=== PATIENT | male | born 1965 | race Caucasian/White ===

== ENCOUNTER 2024-03-09 07:42 | Inpatient (IN) ==
--- OUTSIDE RECORDS SUMMARY | 2024-03-09 07:50 | External Medical Summary | Continuity of Care Document ---
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 Role Phone Logan Haji Primary Care Physician [phone] Encounter [facility] FINNBR [id number] Date(s): 12/13/23 - 12/13/23 [facility] [address] [address] [phone] Encounter Diagnosis Body mass index [BMI] 21.0-21.9, adult(Discharge Diagnosis) - 12/13/23 Rotator cuff injury(Discharge Diagnosis) - 12/13/23 Discharge Disposition: Home or Self Care Attending Physician: DO Gallegos Gretchen Elizabeth Allergies, Adverse Reactions, Alerts No Known Allergies Immunizations Given and Recorded Vaccine Date Status Refusal Reason SARS-CoV-2 mRNA (Pfizer 5y-11y) bivalent 06/17/23 Recorded SARS-CoV-2 mRNA (Pfizer 12+) bivalent 1 05/29/22 R ecorded influenza virus vaccine, inactivated 05/28/22 Pravin rded influenza virus vaccine, inactivated 2 05/23/21 Re corded influenza virus vaccine, inactivated 3 05/12/20 Re corded influenza virus vaccine, inactivated 4 05/25/19 Re corded influenza virus vaccine, inactivated 05/23/18 Pravin rded influenza virus vaccine, inactivated 05/01/17 Pravin rded influenza virus vaccine, inactivated 05/02/16 Pravin rded influenza virus vaccine, inactivated 05/11/15 Pravin rded SARS-CoV-2 mRNA ([id number]) 5 01/02/22 Recorded SARS-CoV-2 (COVID-19) mRNA BNT-162b2 vax 6 05/25/21 Recorded SARS-CoV-2 (COVID-19) mRNA BNT-162b2 vax 7 08/19/20 Recorded SARS-CoV-2 (COVID-19) mRNA BNT-162b2 vax 8 07/29/20 Recorded zoster vaccine, inactivated 9 08/28/19 Recorded zoster vaccine, inactivated 06/30/19 Recorded zoster vaccine, inactivated 10 06/27/19 Recorded tetanus/diphtheria/pertuss, acel (Tdap) 03/15/15 R ecorded measles/mumps/rubella virus vaccine 11 08/12/66 Re corded 1Result Comment: 2022-06-20: Historical information-source unspecified 2Result Comment: at work at [employer] 3Result Comment: at [employer] 4Result Comment: at [employer] 5Result Comment: 2022-06-20: Historical information-source unspecified 6Result Comment: 2021-06-12: Historical information-source unspecified 7Result Comment: 2021-06-12: Historical information-source unspecified 8Result Comment: 2021-06-12: Historical information-source unspecified 9Result Comment: 2020-06-08: Historical information-source unspecified 10Result Comment: 2019-08-31: Historical information-source unspecified 11Result Comment: he will check with [employer] employee health Medications Flonase 50 mcg/inh nasal spray Start: 05/28/16 8:59:33, 1 spray, intranasal, bid, Disp# 1 each, Refills: 11, [facility] Start Date: 05/28/16 Status: Ordered valACYclovir 500 mg oral tablet Start: 06/10/23 15:06:00 EDT, 2 tab, PO, q12h, Disp# 8 tab, Refills: 1, Pharmacy: [id number] Start Date: 06/10/23 Status: Ordered Vitamin D3 2000 intl units oral capsule Start: 06/04/18 8:37:00 EDT, 1 cap, PO, Daily, Disp# 100 cap, Refills: 10, given to patient Start Date: 06/04/18 Status: Ordered Mental Status 12/13/23 Barriers to Learning one year None evide nt Mandatory Health Literacy Documentation Yes Health Literacy Communication Barriers N ever Primary Language Nepali Problem List Condition Confirmation Course Effective Dates Status H ealth Status Informant Inguinal hernia bilateral, non-recurrent 1 Confirmed 05/04/15 Active Kidney stone on left side 2 Confirmed 05/22/14 Active Mitral regurgitation 3 Confirmed 02/04/14 Active Recurrent HSV (herpes simplex virus) 4 Confirmed Active 1right > left 26 mm left upper pole 3mild, normal valve on Echo at [facility] 4on buttock Diagnosis Diagnosis Type Effective Dates Health Status Cl inical Service Informant Body mass index [BMI] 21.0-21.9, adult Discharge Diagnosis 12/13/23 Non-Specified Rotator cuff injury Discharge Diagnosis 12/13/23 Non-Specified Procedures Procedure Date Related Diagnosis Body Site Status Colonoscopy 1 12/20/15 Completed Repair of umbilical hernia 2007 Completed 1Normal. Vital Signs Most recent to oldest [Reference Range]: 1 Height 172 cm (12/13/23 8:30 AM) Patient Weight 62.4 kg (12/13/23 8:30 AM) Body Mass Index 21.09 kg/m2 (12/13/23 8:30 AM) Heart Rate 70 bpm (12/13/23 8:30 AM) Respiratory Rate 16 br/min (12/13/23 8:30 AM) Blood Pressure 120/84mmHg (12/13/23 8:30 AM) Cuff Pulse Pressure 36 mmHg (12/13/23 8:30 AM) Social History Social History Type Response Smoking Status Never smoked cigaret evin Sex Male Patient Care team information Care Team Personnel Name: MD Haji Christopher Position: Physician - Family Med Member Role: Primary Care Provider Address: Address: [facility] [address] [place] [address] [place] Care Team Related Persons Name: DAREK VILLA Address: home No Address Provided
[2024-03-09] MEDS: HYDROmorphone INJ 0.5 MG/0.5 ML SYR IV STA (08:00)
[2024-03-09] MEDS: SODIUM CHLORIDE 0.9% 500 ML IV STA (08:00)
[2024-03-09] MEDS: ONDANSETRON INJ 2 MG/ML 2 ML VIAL IV STA (08:04)
--- NOTE | 2024-03-09 08:06 | Emergency Department Note ---
Impression & Plan Acute left flank pain ED Provider Note NAME: JENNIFER RAMIREZ AGE: 58 SEX: Male INFORMANT: Patient ED PROVIDER(S): Damian Bose MD CHIEF COMPLAINT: Flank pain PLAN: Disposition: Admitted Outpatient prescription management: none Referral: None MEDICAL DECISION MAKING: Patient present because of flank pain. Blood work was unremarkable. X-ray of edging was concerning for possible kidney stone. Patient received multiple doses of IV Dilaudid, Toradol, and Zofran. He was still having moderate pain. His hemoglobin was noted to be 2 points lower than prior. He underwent CT imaging. No signs of infection on urinalysis. Patient has a very large obstructing ureteral stone. Consultation was made with the [facility] urology service. Patient will be admitted for pain control under the hospitalist service. The patient was seen and examined with Dr. Ayon, resident physician. We discussed the case and treatments ordered, reviewed the results, and determine the disposition. I have been directly involved with the management and disposition as well as independently evaluated the patient as documented in this note. Care/management discussed with: client program manager Level of care consideration(s): After review of the information above and other included data, I feel the patient requires escalation of care to admission Triage Nursing notes: reviewed and agree them. Vital Signs: reviewed and remarkable for no significant abnormalities Additional History obtained from: none Chronic Medical/Social Conditions affecting care: none Prior/ Outside/ External records reviewed: none Differential Diagnosis: Renal colic, UTI, appendicitis, diverticulitis, mesenteric ischemia, aortic pathology, infections, inflammatory bowel disease, PUD, biliary pathology, as well as other pathologies. Diagnostics, independently interpreted by me: ECG: none Cardiac Monitoring: Cardiac monitoring ordered by me: The patient was placed on continuous cardiac monitoring and observed. It revealed a normal sinus rhythm at 60 beats per minute without ectopy or evidence of dysrhythmia. Medical decision rules: none Imaging studies: KUB reveals calcification in the left flank concerning for nephrolithiasis. I refer you to the EMR for further details. HPI: 58 year old Male arrives for evaluation of left flank pain. This started 4 days ago and is persisting. Hx of left ureterolithiasis. The patient also notes the following associated symptoms, hematuria, nausea and vomiting. The patient has no medication for relieving factors. Current pain is rated as 8/10. Pt denies LOC, headache, fevers, chills, diaphoresis, visual changes, neck pain, chest pain, breathing difficulties, nausea, vomiting, abdominal pain, back pain, melena, hematochezia, urinary symptoms, numbness, weakness, lymphadenopathy, rash, or other complaints. PAST MEDICAL HISTORY: See Below, kidney stone PAST SURGICAL HISTORY: See Below, SOCIAL HISTORY: See Below, non-smoker HOME MEDICATIONS: See Below ALLERGIES: See Below VITALS: See Below PHYSICAL EXAMINATION: GENERAL: Awake, alert, uncomfortable-appearing, in no distress HENT: Normocephalic, atraumatic. Oropharynx unremarkable. EYES: Normal conjunctiva. Sclera non-icteric. NECK: Inspection normal. Non-tender. Supple. No nuchal rigidity. FROM. No masses. RESPIRATORY: Clear to auscultation. No wheezes. No rales. Normal respiratory effort. CARDIAC: Normal rate. Normal rhythm. No murmurs. No rubs. Extremities warm and well perfused. Pulses equal. No JVD. GI: Soft, non-distended. Left flank tenderness to palpation. No rebound or guarding. No masses. RECTAL: Deferred. MUSCULOSKELETAL: Atraumatic. Chest examination reveals no tenderness. The back is symmetrical on inspection without obvious abnormality. There is left CVA tenderness to palpation. No joint edema. LOWER EXTREMITIES: Calves are equal size bilaterally and non-tender. No edema. No discoloration. NEURO: Normal sensorium. No sensory or motor deficits noted. SKIN: No rash or jaundice noted. PROCEDURES: none CRITICAL CARE: none OBSERVATION NOTE: none Past Med/Surg History Problem List (Updated 03/09/24 @ 12:18 by Rosales Julian MD) Ureterolithiasis Acute left flank pain (Acute) Left nephrolithiasis Encounter for pre-operative examination Hematuria resolved Right inguinal hernia Small bowel obstruction (Acute) Epigastric pain (Acute 02/03/14) Medical History Nephrolithiasis History of atrial fibrillation Episode 2013- [facility] admssion, spontaneous conversion with unremarkable Echo and CHADS score zero No AC indication/further recommendations per [facility] inpatient cardiology consult 2013 Sinus rhythm on preop EKG 06/21/23 Mitral regurgitation no cardio. Recurrent HSV (herpes simplex virus) Surgical History S/P ureteral stent placement History of cystoscopy H/O right inguinal hernia repair (07/23/23) Open Right Inguinal Hernia Repair with Mesh(Right) - Broderick Smith DO H/O umbilical hernia repair 2005 Hx of colonoscopy Social History Smoking Status: Never smoker Second Hand Exposure: No; Do You Dip or Chew Tobacco: No; Hx Alcohol Use: Yes Alcohol type: beer and wine Alcohol Intake Frequency: 4 or More x per/Week Alcohol Intake Frequency Comment: 3-5/week Hx Substance Use: No Preferred Language: [place] Communication Ability: Effective Basket Hand Weaver Required: No Beliefs That Will Affect Care: None marital status: Current Living Situation: Spouse 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 How many Children do You have: 0 Feels Safe at Home: Yes Diet: regular during the past year weight has: remained stable Assistive Devices: Glasses Allergies Allergies Allergy/AdvReac Type Severity Reaction Status Date / Time No Known Allergies Allergy Unknown Verified 03/09/24 11:14 Home Meds Home Medications Medication Instructions Recorded Confirmed cholecalciferol (vitamin D3) 50 50 mcg PO DAILY 06/22/22 03/09/24 mcg (2,000 unit) capsule Results & Data (ED) Vital Signs Vital Signs - 24 hr 03/09/24 07:43 03/09/24 08:21 03/09/24 10:41 Temperature 36.4 C L Temperature Source Temporal Artery Scan Pulse Rate 67 61 Pulse Rate [Apical] 56 L Pulse Rate from SpO2 Sensor Respiratory Rate 24 18 Respiratory Effort / Characteristics Non-Labored Non-Labored Spontaneous Respiratory Depth Normal Normal Respiratory Pattern Regular Blood Pressure 165/78 H Blood Pressure [Right Arm] 125/70 Blood Pressure Mean 107 Blood Pressure Mean [Right Arm] 88 Pulse Oximetry 98 97 Oxygen Delivery Method Room Air Room Air Sepsis New/Unexplained Change in Mental Status No Sepsis Action Taken by Nursing No Action Required 03/09/24 11:09 03/09/24 11:30 03/09/24 12:06 Temperature Temperature Source Pulse Rate 58 L 50 L 55 L Pulse Rate [Apical] Pulse Rate from SpO2 Sensor 59 L 50 L Respiratory Rate 17 18 17 Respiratory Effort / Characteristics Respiratory Depth Respiratory Pattern Blood Pressure 123/69 129/64 133/72 Blood Pressure [Right Arm] Blood Pressure Mean 87 85 92 Blood Pressure Mean [Right Arm] Pulse Oximetry 99 97 99 Oxygen Delivery Method Sepsis New/Unexplained Change in Mental Status Sepsis Action Taken by Nursing 03/09/24 12:15 03/09/24 13:03 Temperature Temperature Source Pulse Rate 58 L 58 L Pulse Rate [Apical] Pulse Rate from SpO2 Sensor 61 Respiratory Rate 21 Respiratory Effort / Characteristics Respiratory Depth Respiratory Pattern Blood Pressure 122/73 Blood Pressure [Right Arm] Blood Pressure Mean 89 Blood Pressure Mean [Right Arm] Pulse Oximetry 99 Oxygen Delivery Method Sepsis New/Unexplained Change in Mental Status Sepsis Action Taken by Nursing Laboratory Data 03/09/24 07:54 03/09/24 07:54 Lab Results 03/09/24 03/09/24 Range/Units 07:54 11:20 WBC 4.08 L (4.8-10.8) K/ul RBC 4.96 (4.70-6.10) M/uL Hgb 12.1 L (14.0-18.0) g/dl Hct 38.3 L (42.0-52.0) % MCV 77.2 L (80.0-100.0) fL MCH 24.4 L (25.0-34.0) pg MCHC 31.6 L (32.0-36.0) g/dL RDW Std Deviation 38.7 (36.4-46.3) fL RDW Coeff of Aleisha 14.1 (11.5-14.5) % Plt Count 211 (130-400) K/uL MPV 9.9 (9.4-12.4) fL Sodium 141 (136-145) mmol/L Potassium 3.7 (3.5-5.1) mmol/L Chloride 109 H (98-107) mmol/L Carbon Dioxide 27 (21-32) mmol/L Anion Gap 5 (3-11) BUN 18 (6-23) mg/dl Creatinine 0.93 (0.6-1.4) mg/dl Est Cr Clr Drug Dosing 67.5 ml/min Est GFR ( Amer) 104.5 ml/min Est GFR (Non-Af Amer) 90.2 ml/min BUN/Creatinine Ratio 19.4 (10-20) Glucose 219 H (70-99(Fasting)) mg/dl Calcium 8.6 (8.6-10.3) mg/dl Total Bilirubin 0.5 (0.2-1.0) mg/dl AST 19 (13-39) U/L ALT 17 (7-52) U/L Alkaline Phosphatase 66 (34-104) U/L Total Protein 6.2 (6.0-8.3) gm/dl Albumin 4.1 (3.4-5.0) gm/dl Globulin 2.1 L (2.5-4.0) gm/dl Albumin/Globulin Ratio 2.0 (0.9-2) Urine Color Kimball Urine Appearance Turbid A (Clear) Urine pH 6.0 (4.5-7.5) Ur Specific Jefferson 1.021 (1.000-1.030) Urine Protein 2+ H (Negative) Urine Glucose (UA) Negative (Negative) Urine Ketones Negative (Negative) Urine Blood 3+ H (Negative) Urine Nitrite Negative (Negative) Urine Bilirubin Negative (Negative) Urine Urobilinogen Negative (Negative) Ur Leukocyte Esterase 1+ H (Negative) Urine WBC (Auto) 0-5 (0-5) /hpf Urine RBC (Auto) >20 H (0-2) /hpf U Hyaline Cast (Auto) 0-2 (0-2) /lpf U Epithel Cells (Auto) 0-2 (0-2) /hpf Urine Bacteria (Auto) None Seen (None Seen) Urine Mucus Present A (None Prsent) Administered Medications Discontinued Medications Hydromorphone HCl (Hydromorphone Inj 0.5 Mg/0.5 Ml Syr) 0.5 mg IV NOW STA Stop: 03/09/24 07:54 Last Admin: 03/09/24 08:00 Dose: 0.5 mg Documented By: CLARI Sodium Chloride (Nss) 500 mls @ 999 mls/hr IV .Q31M STA Stop: 03/09/24 08:27 Last Infusion: 03/09/24 08:37 Dose: Infused Documented By: Admin: 03/09/24 08:00 Dose: 999 mls/hr Documented By: CLARI Lactated Ringer's (Lr) 1,000 mls @ 999 mls/hr IV .Q1H1M ONE Stop: 03/09/24 12:53 Last Admin: 03/09/24 12:12 Dose: 999 mls/hr Documented By: HILL Ketorolac Tromethamine (Ketorolac Tromethamine 15 Mg/Ml Vial) 10 mg IV NOW ONE Stop: 03/09/24 08:32 Last Admin: 03/09/24 08:36 Dose: 10 mg Documented By: CLARI Ketorolac Tromethamine (Ketorolac Tromethamine 15 Mg/Ml Vial) 15 mg IV NOW ONE Stop: 03/09/24 09:31 Last Admin: 03/09/24 09:36 Dose: Not Given Documented By: CLARI Morphine Sulfate (Morphine Sulfate 4 Mg/Ml 1 Ml Carp\Vial) 4 mg IV NOW STA Stop: 03/09/24 09:34 Last Admin: 03/09/24 09:38 Dose: 4 mg Documented By: CLARI Ondansetron HCl (Ondansetron Inj 2 Mg/Ml 2 Ml Vial) 4 mg IV NOW STA Stop: 03/09/24 08:02 Last Admin: 03/09/24 08:04 Dose: 4 mg Documented By: CLARI Tamsulosin HCl (Tamsulosin Hcl 0.4 Mg Cap) 0.4 mg PO NOW STA Stop: 03/09/24 11:57 Last Admin: 03/09/24 12:12 Dose: 0.4 mg Documented By: HILL Imaging Data Radiologist's Impression: KUB X-Ray 03/09/24 07:53 KUB HISTORY: Left flank pain COMPARISON: Renal ultrasound 12/05/2023. Abdomen and pelvis CT 08/01/2023. FINDINGS: The bowel gas pattern is unremarkable. There are no dilated loops of small bowel to suggest an obstruction. There is 9 mm stone at the expected location of the left ureteropelvic junction. There are few punctate left renal calculi. No right renal calculi. A 2.3 cm sclerotic focus within the left side of the sacrum is consistent with a bone island. No pneumoperitoneum or pneumatosis. IMPRESSION: 1. A 9 mm stone at the expected location of the left ureteropelvic junction. 2. Left-sided nephrolithiasis. ACT 112: Negative or not required by law. Electronically signed by: Anuel Stewart M.D. 03/09/2024 9:28 AM Abdomen/Pelvis CT 03/09/24 08:[address] WITHOUT CONTRAST CT DOSE: 441.01 mGy.cm HISTORY: Acute left flank pain with hematuria kidney stone TECHNIQUE: Multiaxial CT images of the abdomen and pelvis were performed without contrast. A dose lowering technique was utilized adhering to the principles of ALARA. COMPARISON STUDY: Renal ultrasound 12/05/2023, CT 08/01/2023 FINDINGS: No acute lower thoracic abnormality. No free air. The unenhanced spleen, pancreas, gallbladder, adrenal glands and liver appear unremarkable. Unremarkable right kidney. 4 mm nonobstructing calculus of the superior pole left kidney. Moderate left-sided hydroureteronephrosis secondary to an obstructing 9 x 7 x 11 mm calculus of the proximal left ureter just distal to the UPJ. Reactive perinephric and perirenal inflammatory stranding. Prostatomegaly. Decompressed urinary bladder with wall thickening. Mild atherosclerosis of the aorta. No lymphadenopathy identified. Small hiatal hernia with distal esophageal wall thickening. No bowel obstruction or bowel wall thickening identified. The appendix is not well visualized. Unchanged left sacral sclerotic focus. No acute fracture. IMPRESSION: 1. Moderate left-sided hydroureteronephrosis secondary to an obstructing 11 mm calculus of the proximal left ureter just distal to the UPJ. 2. Left nephrolithiasis. ACT 112: Negative or not required by law. The above report was generated using voice recognition software. It may contain grammatical, syntax or spelling errors. Electronically signed by: Carlo Plaza M.D. 03/09/2024 9:21 AM Discharge Plan Visit Data Chief Complaint: Flank Pain Stated Complaint: FLANK PAIN, BLOOD IN URINE ED Provider: Damian Bose ED Midlevel Provider: Richard Ayon Discharge Problem: Acute left flank pain Forms Stand Alone Forms: My [facility] [employer] Prescriptions Prescriptions: No Action cholecalciferol (vitamin D3) 50 mcg (2,000 unit) capsule 50 mcg PO DAILY Referrals Referrals: Logan Haji MD [Primary Care Provider] -
[2024-03-09 08:09] LABS: Hematocrit (blood only) 38.3 % (42.0-52.0); Hemoglobin 12.1 g/dl (14.0-18.0); Mean Corpuscular Hemoglobin 24.4 pg (25.0-34.0); Mean Corpuscular Hgb Conc 31.6 g/dL (32.0-36.0); Mean Corpuscular Volume 77.2 fL (80.0-100.0); Mean Platelet Volume 9.9 fL (9.4-12.4); Platelet Count 211 K/uL (130-400); RDW Coefficient of Variation 14.1 % (11.5-14.5); RDW Standard Deviation 38.7 fL (36.4-46.3); Red Blood Count 4.96 M/uL (4.70-6.10); White Blood Count 4.08 K/ul (4.8-10.8)
[2024-03-09 08:27] LABS: Albumin Level 4.1 gm/dl (3.4-5.0); BUN Creatinine Ratio 19.4 (10-20); Bilirubin,Total 0.5 mg/dl (0.2-1.0); Calcium 8.6 mg/dl (8.6-10.3); Creatinine Clr Calc Pharmacy 67.5 ml/min; Est GFR (African American) 104.5 ml/min; Est GFR (Non-African American) 90.2 ml/min; Globulin 2.1 gm/dl (2.5-4.0); Potassium 3.7 mmol/L (3.5-5.1); Total Protein 6.2 gm/dl (6.0-8.3)
[2024-03-09] MEDS ORDERED: HYDROmorphone INJ 0.5 MG/0.5 ML SYR IV PRN (08:31)
[2024-03-09] MEDS: KETOROLAC TROMETHAMINE 15 MG/ML VIAL IV ONE ×2 (08:36→09:36)
--- NOTE | 2024-03-09 09:22 | CT Scan Report ---
ABDOMEN AND PELVIS CT WITHOUT CONTRAST CT DOSE: 441.01 mGy.cm HISTORY: Acute left flank pain with hematuria kidney stone TECHNIQUE: Multiaxial CT images of the abdomen and pelvis were performed without contrast. A dose lo wering technique was utilized adhering to the principles of ALARA. COMPARISON STUDY: Renal ultrasound 12/05/2023, CT 08/01/2023 FINDINGS: No acute lower thoracic abnormality. No free air. The unenhanced spleen, pancreas, gallblad julia, adrenal glands and liver appear unremarkable. Unremarkable right kidney. 4 mm nonobstructing sruthi culus of the superior pole left kidney. Moderate left-sided hydroureteronephrosis secondary to an obs tructing 9 x 7 x 11 mm calculus of the proximal left ureter just distal to the UPJ. Reactive perineph tamara and perirenal inflammatory stranding. Prostatomegaly. Decompressed urinary bladder with wall thic kening. Mild atherosclerosis of the aorta. No lymphadenopathy identified. Small hiatal hernia with distal esophageal wall thickening. No bowel obstruction or bowel wall thicke enedina identified. The appendix is not well visualized. Unchanged left sacral sclerotic focus. No acute fracture. IMPRESSION: 1. Moderate left-sided hydroureteronephrosis secondary to an obstructing 11 mm calculus of the proxim al left ureter just distal to the UPJ. 2. Left nephrolithiasis. ACT 112: Negative or not required by law. The above report was generated using voice recognition software. It may contain grammatical, syntax o r spelling errors. Electronically signed by: Carlo Plaza M.D. 03/09/2024 9:21 AM
--- NOTE | 2024-03-09 09:29 | XRay Report ---
KUB HISTORY: Left flank pain COMPARISON: Renal ultrasound 12/05/2023. Abdomen and pelvis CT 08/01/2023. FINDINGS: The bowel gas pattern is unremarkable. There are no dilated loops of small bowel to suggest an obstruction. There is 9 mm stone at the expected location of the left ureteropelvic junction. Th ere are few punctate left renal calculi. No right renal calculi. A 2.3 cm sclerotic focus within the left side of the sacrum is consistent with a bone island. No pneumoperitoneum or pneumatosis. IMPRESSION: 1. A 9 mm stone at the expected location of the left ureteropelvic junction. 2. Left-sided nephrolithiasis. ACT 112: Negative or not required by law. Electronically signed by: Anuel Stewart M.D. 03/09/2024 9:28 AM
[2024-03-09] MEDS: MoRPHine SULFATE 4 MG/ML 1 ML CARP\\VIAL IV STA (09:38)
--- NOTE | 2024-03-09 10:07 | Urology Consultation ---
Date of Consultation March 09, 2024 Assessment & Plan (1) Acute left flank pain: (2) Left nephrolithiasis: 58-year-old male with past medical history of nephrolithiasis presented to the emergency department today for left flank pain and hematuria. CT imaging demonstrated an 11 mm obstructing left proximal ureteral stone with hydroureteronephrosis. Patient afebrile and hemodynamically stable Labs reviewedcreatinine 0.93, WBC 4.08, hemoglobin 12.1 No urinalysis at time of visit CT imaging reviewed and discussed with patient Discussed options for stone management including left ureteral stent placement while inpatient with stone treatment at a future date or outpatient surgical intervention with ureteroscopy, laser lithotripsy and stent placement if pain is controlled He ate breakfast this morning After discussion, will monitor overnight and reassess for intervention tomorrow He is being admitted to hospital medicine service for pain management Okay for diet today, make NPO at midnight Recommend collect urine sample for urinalysis and culture Continue supportive care, pain management and medical management per hospital medicine service Please contact our service if he develops fever or acute changes to clinical status will follow History of Present Illness History of Present Illness This is a 58-year-old male with past medical history of nephrolithiasis who presented to the emergency department today for evaluation of acute left flank pain starting this morning. On arrival to ED, he was afebrile and hemodynamically stable. Lab work showed creatinine 0.93, WBC 4.08, hemoglobin 12.1. No urinalysis at time of visit. Workup in the emergency department included CT abdomen pelvis without contrast which showed moderate left-sided hydroureteronephrosis secondary to an obstructing 11 mm calculus of the proximal left ureter just distal to the UPJ, left nephrolithiasis. Patient seen and examined in the emergency department. He is awake and resting in litter. He reports pain has improved since arrival. He reports left flank pain started this morning. He noted hematuria starting 4 days ago. No dysuria. He had nausea and vomiting prior to arrival today. No fever or chills. He ate breakfast at 630 this morning. Allergies Allergy/AdvReac Type Severity Reaction Status Date / Time No Known Allergies Allergy Unknown Verified 03/09/24 11:14 Home Medications Medication Instructions Recorded Confirmed Type cholecalciferol (vitamin D3) 50 50 mcg PO DAILY 06/22/22 03/09/24 History mcg (2,000 unit) capsule Patient History Medical History Nephrolithiasis History of atrial fibrillation Episode 2013- [facility] admssion, spontaneous conversion with unremarkable Echo and CHADS score zero No AC indication/further recommendations per [facility] inpatient cardiology consult 2013 Sinus rhythm on preop EKG 06/21/23 Mitral regurgitation no cardio. Recurrent HSV (herpes simplex virus) Surgical History S/P ureteral stent placement History of cystoscopy H/O right inguinal hernia repair (07/23/23) Open Right Inguinal Hernia Repair with Mesh(Right) - Broderick Smith DO H/O umbilical hernia repair 2005 Hx of colonoscopy Social History Smoking Status: Never smoker Second Hand Exposure: No; Do You Dip or Chew Tobacco: No; Hx Alcohol Use: Yes Alcohol type: beer and wine Alcohol Intake Frequency: 4 or More x per/Week Alcohol Intake Frequency Comment: 3-5/week Hx Substance Use: No Preferred Language: Setswana Communication Ability: Effective Fire Manager Required: No Beliefs That Will Affect Care: None marital status: Current Living Situation: Spouse 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 How many Children do You have: 0 Feels Safe at Home: Yes Diet: regular during the past year weight has: remained stable Assistive Devices: Glasses Review of Systems Review of Systems: ROS was performed with pertinent positives noted as above; all other systems negative Physical Exam Constitutional: well developed and well nourished; no acute distress Respiratory: normal respiratory effort; no respiratory distress and no labored breathing Gastrointestinal (Abdomen): Inspection/Auscultation: abdomen normal to inspection Musculoskeletal: Head/Neck/Chest: normocephalic Neurologic: moves all extremities and awake Psychiatric: Orientation: alert and oriented x 3 Results & Data Vital Signs (Past 12 Hours) Vital Signs Temp Pulse Resp BP Pulse Ox O2 Del Method 03/09/24 08:21 61 03/09/24 07:43 36.4 C L 67 24 165/78 H 98 Room Air PG Care Time/CCT Total # of Minutes Spent Total Time Spent with Patient: Total time spent is greater than 50% in coordination of care (as documented) at patient's floor/unit and/or counseling patient: Coding Level of Care Code 43438 IN/OBS CONSULT LVL 4,60M Diagnoses Acute left flank pain R10.9 Left nephrolithiasis N20.0
[2024-03-09 11:44] LABS: Appearance Urine Turbid (Clear); Bacteria Urine Automated None Seen (None Seen); Bilirubin Urine Negative (Negative); Blood Urine 3+ (Negative); Cast Urine Automated 0-2 /lpf (0-2); Color Urine Orange; Epithelial Cell Urine Auto 0-2 /hpf (0-2); Glucose Urine UA Negative (Negative); Ketones Urine Negative (Negative); Leukocyte Esterase Urine 1+ (Negative); Mucus Urine Present (None Prsent); Nitrite Urine Negative (Negative); Protein Urine 2+ (Negative); RBC Urine Automated >20 /hpf (0-2); Specific Gravity Urine 1.021 (1.000-1.030); Urobilinogen Urine Negative (Negative); WBC Urine Automated 0-5 /hpf (0-5)
--- NOTE | 2024-03-09 12:00 | History & Physical Report ---
Date of Service March 09, 2024 Assessment & Plan (1) Ureterolithiasis: Plan: No BENITA, UA not infective appearing, no chronic medical conditions Pain severity 6/10 following Toradol 10 + 15mg, Dilaudid 0.5mg IV, Morphine 4mg IV therefore urology requested admission under medicine for pain control as unable to place a stent today as he ate breakfast Patient reports he may be an add on case therefore will defer to urology to place a diet whenever this is confirmed or not NPO, continue IV fluids, tamsulosin 0.4mg PO daily Pain control: Acetaminophen 1st line, Toradol 2nd line, Morphine 3rd line Strain all urine Plan VTE Prophylaxis - Low risk Diet - to be ordered by urology Disposition - admit to med/surg Admission and Anticipated Discharge Date Admission Date: March 09, 2024 History of Present Illness Chief Complaint: Left flank pain Primary Care Provider: Logan Haji MD Braden Rankin is a 58 year old male who presents to the ER with hematuria and flank pain. Hematuria started 4 days ago and has been intermittent in the past with his known kidney stone but usually last for half a day and improves. On this occasion it was persistent and this morning he started having left sided flank pain with vomiting. No change in urinary frequency/color/smell, dysuria, fever or chills. Allergies Allergy/AdvReac Type Severity Reaction Status Date / Time No Known Allergies Allergy Unknown Verified 03/09/24 11:14 Home Medications Medication Instructions Recorded Confirmed Type cholecalciferol (vitamin D3) 50 50 mcg PO DAILY 06/22/22 03/09/24 History mcg (2,000 unit) capsule Past Med/Surg History Problem List (Updated 03/09/24 @ 12:18 by Rosales Julian MD) Ureterolithiasis Acute left flank pain (Acute) Left nephrolithiasis Encounter for pre-operative examination Hematuria resolved Right inguinal hernia Small bowel obstruction (Acute) Epigastric pain (Acute 02/03/14) Medical History Nephrolithiasis History of atrial fibrillation Episode 2013- [facility] admssion, spontaneous conversion with unremarkable Echo and CHADS score zero No AC indication/further recommendations per [facility] inpatient cardiology consult 2013 Sinus rhythm on preop EKG 06/21/23 Mitral regurgitation no cardio. Recurrent HSV (herpes simplex virus) Surgical History S/P ureteral stent placement History of cystoscopy H/O right inguinal hernia repair (07/23/23) Open Right Inguinal Hernia Repair with Mesh(Right) - Broderick Smith DO H/O umbilical hernia repair 2005 Hx of colonoscopy Social History Smoking Status: Never smoker Second Hand Exposure: No; Do You Dip or Chew Tobacco: No; Hx Alcohol Use: Yes Alcohol type: beer and wine Alcohol Intake Frequency: 4 or More x per/Week Alcohol Intake Frequency Comment: 3-5/week Hx Substance Use: No Preferred Language: Romanian Communication Ability: Effective Director Transition Required: No Beliefs That Will Affect Care: None marital status: Current Living Situation: Spouse 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 How many Children do You have: 0 Other Information That Helps Us Care for You: No Feels Safe at Home: Yes Safety Concerns: Feels Safe At This Time Diet: regular during the past year weight has: remained stable Assistive Devices: Glasses Review of Systems Review of Systems: All systems reviewed & are unremarkable except as noted in HPI & below Physical Exam Constitutional: WD/WN, vitals as above Eyes: + anicteric sclerae; normal pupil size ENMT: external ear and nose normal, oropharynx normal Respiratory: normal respiratory effort, lungs clear to auscultation Cardiovascular: RRR, no murmur, no edema Gastrointestinal (Abdomen): normal bowel sounds, soft, nontender, no hepatosplenomegaly Skin: no rashes, warm and dry Neurologic: moves all extremities and awake; not confused Psychiatric: A+Ox3, euthymic affect Genitourinary: + CVA tenderness (Left) Results & Data Results & Data Vital Signs (Past 12 Hours) Vital Signs Temp Pulse Pulse Resp BP BP Pulse Ox 03/09/24 10:41 56 L 18 125/70 97 03/09/24 08:21 61 03/09/24 07:43 36.4 C L 67 24 165/78 H 98 O2 Del Method 03/09/24 10:41 Room Air 03/09/24 08:21 03/09/24 07:43 Room Air Laboratory Results Abnormal lab results 03/09/24 03/09/24 Range/Units 07:54 11:20 WBC 4.08 L (4.8-10.8) K/ul Hgb 12.1 L (14.0-18.0) g/dl Hct 38.3 L (42.0-52.0) % MCV 77.2 L (80.0-100.0) fL MCH 24.4 L (25.0-34.0) pg MCHC 31.6 L (32.0-36.0) g/dL Chloride 109 H (98-107) mmol/L Glucose 219 H (70-99(Fasting)) mg/dl Globulin 2.1 L (2.5-4.0) gm/dl Urine Appearance Turbid A (Clear) Urine Protein 2+ H (Negative) Urine Blood 3+ H (Negative) Ur Leukocyte Esterase 1+ H (Negative) Urine RBC (Auto) >20 H (0-2) /hpf Urine Mucus Present A (None Prsent) Diagnostic Findings KUB HISTORY: Left flank pain COMPARISON: Renal ultrasound 12/05/2023. Abdomen and pelvis CT 08/01/2023. FINDINGS: The bowel gas pattern is unremarkable. There are no dilated loops of small bowel to suggest an obstruction. There is 9 mm stone at the expected location of the left ureteropelvic junction. There are few punctate left renal calculi. No right renal calculi. A 2.3 cm sclerotic focus within the left side of the sacrum is consistent with a bone island. No pneumoperitoneum or pneumatosis. IMPRESSION: 1. A 9 mm stone at the expected location of the left ureteropelvic junction. 2. Left-sided nephrolithiasis. ABDOMEN AND PELVIS CT WITHOUT CONTRAST CT DOSE: 441.01 mGy.cm HISTORY: Acute left flank pain with hematuria kidney stone TECHNIQUE: Multiaxial CT images of the abdomen and pelvis were performed without contrast. A dose lowering technique was utilized adhering to the principles of ALARA. COMPARISON STUDY: Renal ultrasound 12/05/2023, CT 08/01/2023 FINDINGS: No acute lower thoracic abnormality. No free air. The unenhanced spleen, pancreas, gallbladder, adrenal glands and liver appear unremarkable. Unremarkable right kidney. 4 mm nonobstructing calculus of the superior pole left kidney. Moderate left-sided hydroureteronephrosis secondary to an obstructing 9 x 7 x 11 mm calculus of the proximal left ureter just distal to the UPJ. Reactive perinephric and perirenal inflammatory stranding. Prostatomegaly. Decompressed urinary bladder with wall thickening. Mild atherosclerosis of the aorta. No lymphadenopathy identified. Small hiatal hernia with distal esophageal wall thickening. No bowel obstruction or bowel wall thickening identified. The appendix is not well visualized. Unchanged left sacral sclerotic focus. No acute fracture. IMPRESSION: 1. Moderate left-sided hydroureteronephrosis secondary to an obstructing 11 mm calculus of the proximal left ureter just distal to the UPJ. 2. Left nephrolithiasis. Medications Administered ER Medications Given: Dilaudid 0.5mg IV NSS 500ml bolus Ondansetron 4mg IV Toradol 10mg IV Toradol 15mg IV Morphine 4mg IV Code Status & VTE Plan Code Status Full VTE Prophylaxis Plan VTE Prophylaxis will be ordered: No PG Care Time/CCT Total # of Minutes Spent Total Time Spent with Patient: Total time spent is greater than 50% in coordination of care (as documented) at patient's floor/unit and/or counseling patient: Coding Level of Care Code 75275 INT INP/OBS CARE 2/55MIN Diagnoses Ureterolithiasis N20.1
[2024-03-09] MEDS: LACTATED RINGER'S 1,000 ML IV ONE (12:12)
[2024-03-09] MEDS: TAMSULOSIN HCL 0.4 MG CAP PO STA (12:12)
[2024-03-09] MEDS ORDERED: MoRPHine SULFATE 2 MG/ML CARP IV PRN (14:47)
[2024-03-09] MEDS ORDERED: MoRPHine SULFATE 4 MG/ML 1 ML CARP\\VIAL IV PRN (14:47)
[2024-03-09] MEDS: SODIUM CHLORIDE 0.9% 1,000 ML IV SCH (15:08)
[2024-03-09] MEDS: KETOROLAC 30 MG/ML VIAL IV PRN (15:10)
[2024-03-10] MEDS: CHOLECALCIFEROL 25 MCG (1000 UNITS) TAB PO SCH (07:13)
--- NOTE | 2024-03-10 07:38 | Urology Progress Note ---
Date of Service March 10, 2024 Assessment & Plan (1) Ureterolithiasis: (2) Acute left flank pain: (3) Left nephrolithiasis: Plan: Follow-up of an 11 mm obstructing left ureteral stone Patient afebrile, hemodynamically stable No new labs at time of visit, normal renal function and no leukocytosis on 03/09 Urinalysis on arrival was negative for bacteria Continues to have intermittent flank pain Discussed options for stone management including left ureteral stent placement today with possible stone treatment versus outpatient management After discussion, he wishes to proceed with surgical intervention today Proceed to OR for cystoscopy, left ureteral nephroscopy, left stent placement and possible stone treatment Risks and benefits of procedure to be reviewed with patient by Dr. Saran Briggs n.p.o. for procedure Will cover with IV Ancef prior to procedure Continue supportive care will follow Admission and Anticipated Discharge Date Admission Date: March 09, 2024 Subjective Patient seen and examined at bedside this morning Continues with intermittent left flank pain, overall improved since arrival Denies nausea or vomiting Voiding without difficulty, no dysuria or hematuria No fever or chills Review of Systems Constitutional: as per Subjective / HPI Genitourinary: + as per Subjective / HPI Physical Exam Constitutional: well developed and well nourished; no acute distress Respiratory: normal respiratory effort; no respiratory distress and no labored breathing Gastrointestinal (Abdomen): Inspection/Auscultation: abdomen normal to inspection Musculoskeletal: Head/Neck/Chest: normocephalic Neurologic: moves all extremities and awake Psychiatric: Orientation: alert and oriented x 3 Results & Data Vital Signs (Past 12 Hours) Vital Signs Temp Pulse Resp BP Pulse Ox O2 Del Method 03/10/24 07:28 37.0 C 53 L 18 116/65 98 Room Air 03/09/24 19:55 37 C 50 L 18 111/70 99 Room Air PG Care Time/CCT Total # of Minutes Spent Total Time Spent with Patient: Total time spent is greater than 50% in coordination of care (as documented) at patient's floor/unit and/or counseling patient: Coding Level of Care Code 79477 SUB INP/OBS CARE 125MIN Diagnoses Ureterolithiasis N20.1 Acute left flank pain R10.9 Left nephrolithiasis N20.0
[2024-03-10] MEDS: ACETAMINOPHEN 325 MG TAB PO PRN (09:53)
[2024-03-10] MEDS ORDERED: ePHEDrine sulfate 50 MG/ML AMP IV PRN (12:54)
[2024-03-10] MEDS ORDERED: ATROPINE SULFATE 0.1 MG/ML 10ML SYR IV PRN (12:54)
[2024-03-10] MEDS ORDERED: ONDANSETRON INJ 2 MG/ML 2 ML VIAL IV PRN (12:54)
[2024-03-10] MEDS ORDERED: fentaNYL citrate PF 100 MCG/2 ML VIAL IV PRN (12:54)
--- NOTE | 2024-03-10 12:56 | Anesthesiology Consultation ---
Date of Service March 10, 2024 History Surgery Operation Date: 03/10/24 09:40 Proposed Procedures p Cystoscopy, Left Ureteroscopy, Left Stent Placement, Possible Stone Treatment - Logan Noonan MD Height/Weight Height: 5 ft 7 in Weight: 61 kg Allergies Allergy/AdvReac Type Severity Reaction Status Date / Time No Known Allergies Allergy Unknown Verified 03/09/24 11:14 Medications Home Medications Medication Instructions Recorded Confirmed Last Taken cholecalciferol (vitamin D3) 50 50 mcg PO DAILY 06/22/22 03/09/24 03/09/24 mcg (2,000 unit) capsule Active Medications Generic Name Dose Route Start Last Admin Trade Name Freq PRN Reason Stop Dose Admin Acetaminophen 650 mg 03/09/24 14:47 03/10/24 09:53 Acetaminophen 325 Mg Tab PO 04/08/24 14:46 650 mg Q4H PRN Administration Pain Ketorolac Tromethamine 30 mg 03/09/24 14:47 03/09/24 22:46 Ketorolac 30 Mg/Ml Vial IV 03/14/24 14:46 30 mg Q6H PRN Administration Pain Vitamin D 50 mcg 03/10/24 09:00 03/10/24 07:13 Cholecalciferol 25 Mcg (1000 Units) Tab PO 04/09/24 08:59 Not Given DAILY ODALIS NPO Date Last Intake of Fluids: 03/09/24 Time Last Intake of Fluids: 19:00 Date Last Intake of Solids: 03/09/24 Time Last Intake of Solids: 19:00 Past Medical History Medical History Nephrolithiasis History of atrial fibrillation Episode 2013- [facility] admssion, spontaneous conversion with unremarkable Echo and CHADS score zero No AC indication/further recommendations per [facility] inpatient cardiology consult 2013 Sinus rhythm on preop EKG 06/21/23 Mitral regurgitation no cardio. Recurrent HSV (herpes simplex virus) Past Surgical History Surgical History S/P ureteral stent placement History of cystoscopy H/O right inguinal hernia repair (07/23/23) Open Right Inguinal Hernia Repair with Mesh(Right) - Broderick Smith, H/O umbilical hernia repair 2005 Hx of colonoscopy Past Anesthesia History No Hx of Anesthesia Complications and No Family Hx of Anesthesia Complications Social History Smoking Status: Never smoker Do You Dip or Chew Tobacco: No Hx Alcohol Use: Yes Alcohol type: beer and wine alcohol intake frequency: a few times a week Hx Substance Use: No substance use type: does not use Review of Systems ROS Unobtainable: All systems reviewed & are unremarkable except as noted in HPI & below Physical Exam Vital Signs Last Vital Signs Temp 36.4 C L 03/10/24 12:45 Pulse 55 L 03/10/24 12:45 Resp 18 03/10/24 12:45 BP 127/67 03/10/24 12:45 Pulse Ox 98 03/10/24 12:45 O2 Del Method Room Air 03/10/24 12:45 ENMT Mouth: no TMJ abnormality Thyromental Distance: > or= 3.5 Finger Breadths Mallampati Class: II Neck normal visual inspection and trachea midline; neck extension not limited Respiratory normal respiratory effort Auscultation: lungs clear to auscultation bilaterally Cardiovascular Rate/Rhythm: regular rate and regular rhythm Heart Sounds: no murmur Musculoskeletal Spine: normal cervical ROM Extremities: full ROM of extremities Neurologic moves all extremities Psychiatric Orientation: alert and oriented x 3 Testing Laboratory Results 03/09/24 07:54 03/09/24 07:54 Urine Color Singer 03/09/24 11:20 Urine Appearance Turbid (Clear) A 03/09/24 11:20 Urine pH 6.0 (4.5-7.5) 03/09/24 11:20 Ur Specific Aneta 1.021 (1.000-1.030) 03/09/24 11:20 Urine Protein 2+ (Negative) H 03/09/24 11:20 Urine Glucose (UA) Negative (Negative) 03/09/24 11:20 Urine Ketones Negative (Negative) 03/09/24 11:20 Urine Nitrite Negative (Negative) 03/09/24 11:20 Ur Leukocyte Esterase 1+ (Negative) H 03/09/24 11:20 Urine WBC (Auto) 0-5 /hpf (0-5) 03/09/24 11:20 Urine RBC (Auto) >20 /hpf (0-2) H 03/09/24 11:20 U Hyaline Cast (Auto) 0-2 /lpf (0-2) 03/09/24 11:20 U Epithel Cells (Auto) 0-2 /hpf (0-2) 03/09/24 11:20 Urine Bacteria (Auto) None Seen (None Seen) 03/09/24 11:20 Electrocardiogram Date: 09/18/23 Sinus bradycardia Minimal voltage criteria for LVH, may be normal variant ( Sokolow-Haro ) Chronically Peaked T waves(consider ischemia,hyperkalemia,etc.) Abnormal ECG When compared with ECG of 21-JUN-2023 14:46, No significant change was found Confirmed by Keenan Johnston ([id number]) on 09/18/2023 3:07:31 PM
[2024-03-10] MEDS: ceFAZolin 2000MG 2,000 MG/15 ML SYR IV SCH (13:22)
[2024-03-10] MEDS ORDERED: ONDANSETRON INJ 2 MG/ML 2 ML VIAL ONE (14:30)
[2024-03-10] MEDS ORDERED: LIDOCAINE 2% 2 ML VIAL/AMP(20MG/ML) INFIL ONE (14:30)
[2024-03-10] MEDS ORDERED: DEXAMETHASONE SOD INJ 4 MG/ML VIAL ONE (14:30)
[2024-03-10] MEDS ORDERED: MIDAZOLAM HCL 1 MG/ML 2ML VIAL ONE (14:30)
[2024-03-10] MEDS ORDERED: PROPOFOL IV EMULSION 10 MG/ML 20 ML VIAL IV ONE (14:30)
[2024-03-10] MEDS ORDERED: fentaNYL citrate PF 100 MCG/2 ML VIAL ONE ×2 (14:31→15:07)
[2024-03-10] MEDS: ceFAZolin 2000MG 2,000 MG/15 ML SYR IV ONE (14:42)
[2024-03-10] MEDS ORDERED: ACETAMINOPHEN 1000 MG/100 ML IV IV ONE (15:04)
[2024-03-10] MEDS ORDERED: KETOROLAC 30 MG/ML VIAL ONE (15:05)
--- NOTE | 2024-03-10 15:35 | Operative Report ---
PG Post Operative Report Pre & Post Diagnosis Operation Date: 03/10/24 09:40 Pre: L ureteral stone and renal stone Post: L ureteral and renal stones I identified the patient and participated in the time-out.: Yes Procedure Operation Date: 03/10/24 09:40 Procedure: cystoscopy, left ureteroscopy, laser lithotripsy, stent insertion Surgeon Logan Noonan MD Hourly Shift none Estimated Blood Loss 0 Findings Consistent with Post-Op Diagnosis Specimens none Description of Procedure The patient was identified in the preoperative holding area, appropriate informed consents were reviewed and completed and the patient was transferred to the operative suite. Upon arrival, appropriate antibiotics and anesthesia were administered and the patient was placed in dorsal lithotomy position and prepped and draped in sterile fashion. To begin the case to pass a 21 [place] cystoscope with 30 degree lens. Inspection revealed a healthy-appearing urethra out of moderately enlarged prostate. Inspection of the bladder was unremarkable with healthy appearing tissue. There was a small amount of old blood within the dependent portion of the bladder. I irrigated this out. I then turned my attention to the left UO and cannulated with a sensor wire. A 10 [place]an double-lumen catheter was introduced to allow passage of a second wire into the kidney. There was a radiopaque stone visualized in the proximal ureter consistent with prior imaging. I then withdrew the 10 [place] double-lumen catheter and passed a ureteral access sheath to an area just below the stone. I advanced the flexible ureteroscope and noted the stone to be obstructing the lumen of the ureter. The stone was black in color and very round. I began to laser and immediately the stone was freed from inside of impaction and pushed retrograde into the lower pole of the kidney. I then proceeded to follow it into the kidney and treated entirely. Of note, within the kidney there was a significant amount of old blood and some blood clots. I irrigated is much of this out of the kidney as possible. I then treated another small stone within the kidney and proceeded to recheck the entire kidney to confirm that all large fragments have been adequately treated. I attempted to irrigate as much stone as possible out of the kidney before performing a careful exit ureteroscopy. A 6 [place]an by 26 cm double-J stent was inserted with a string left attached. He was reversed of anesthesia and taken to the recovery room in stable condition. There were no complications. I attest to the content of the Intraoperative Record and any orders documented therein. Any exceptions are noted below.
--- NOTE | 2024-03-10 16:01 | Fluoroscopy Report ---
FL KUB CLINICAL HISTORY: LEFT STENTleft ureteral stent placement COMPARISON STUDY: CT 03/09/2024 FLUOROSCOPY TIME: 20.2 seconds FLUOROSCOPY IMAGES: 1 EXPOSURE DOSE: 3.0 mGy FINDINGS: Proximal portion of a left ureteral stent is in satisfactory positioning. The distal portio n of the stent was not imaged. Previously noted proximal left ureteral calculus is not seen. IMPRESSION: Fluoroscopic assistance as above. ACT 112: Negative or not required by law. Electronically signed by: Carlo Plaza M.D. 03/10/2024 3:59 PM
--- NOTE | 2024-03-10 16:24 | Anesthesiology Progress Note ---
Date of Service March 10, 2024 Anesthesia Post Procedure Vital Signs Vital Signs: Temp Pulse Resp BP Pulse Ox O2 Del Method O2 Flow Rate 03/10/24 16:10 57 L 18 118/60 97 Room Air 03/10/24 16:05 36.8 C 55 L 20 112/62 97 Room Air 03/10/24 15:55 60 18 108/52 L 100 Room Air 03/10/24 15:45 55 L 12 109/57 L 100 Oxymask 6 03/10/24 15:37 36.5 C 63 15 113/63 97 Oxymask 8 03/10/24 12:45 36.4 C L 55 L 18 127/67 98 Room Air 03/10/24 07:28 37.0 C 53 L 18 116/65 98 Room Air 03/09/24 19:55 37 C 50 L 18 111/70 99 Room Air 03/09/24 16:26 36.8 C 57 L 16 120/69 97 Room Air Pain Intensity Flank: Pain Intensity: 4 Transfer of Care Handoff Completed per policy Notes Mental Status: alert / awake / arousable and participated in evaluation Patient Amnestic to Procedure: Yes Nausea / Vomiting: adequately controlled Pain: adequately controlled Airway Patency, RR, SpO2: stable & adequate BP & HR: stable & adequate Hydration State: stable & adequate Anesthetic Complications: no major complications apparent and Pt Satisfied with anesthetic care
--- NOTE | 2024-03-10 18:25 | Discharge Summary ---
Discharge Summary Date of Service March 10, 2024 Principal Dx & Hospital Course #1 = Principal Diagnosis (1) Ureterolithiasis: Presented with hematuria and flank pain x 4 days. - No BENITA, UA not infective appearing, no chronic medical conditions. - CT A/P on admission revealed moderate left-sided hydroureteronephrosis secondary to an obstructing 11 mm calculus of the proximal left ureter just distal to the UPJ. Left nephrolithiasis. - Urology consulted > Proceeded with cystoscopy, left ureteroscopy, laser lithotripsy, stent insertion with Dr. Noonan on 03/10/24. Per review of operative note, EBL 0 cc and no complications noted. - Patient voided postop, reported hematuria as expected. - Discharged on Cipro x 3 days, tamsulosin, and tramadol for breakthrough pain. Educated patient to use acetaminophen/ibuprofen as first-line pain control. - Follow-up with urology scheduled for 03/12/24. Plan CODE STATUS: Full code Notes For Next Care Provider Patient presented with 11 mm left-sided ureterolithiasis. Had cystoscopy, left ureteroscopic, laser lithotripsy, stent insertion with Dr. Noonan on 03/10 with no complications noted. Follow-up with urology 03/12/2024. Medication Changes From Visit Ciprofloxacin x 3 days Tamsulosin Acetaminophen/ibuprofen as first-line pain control, tramadol for breakthrough pain Admission HPI Per Admitting Provider Braden Rankin is a 58 year old male who presents to the ER with hematuria and flank pain. Hematuria started 4 days ago and has been intermittent in the past with his known kidney stone but usually last for half a day and improves. On this occasion it was persistent and this morning he started having left sided flank pain with vomiting. No change in urinary frequency/color/smell, dysuria, fever or chills. Admission Exam Per Admitting Provider Constitutional: WD/WN, vitals as above Eyes: + anicteric sclerae; normal pupil size ENMT: external ear and nose normal, oropharynx normal Respiratory: normal respiratory effort, lungs clear to auscultation Cardiovascular: RRR, no murmur, no edema Gastrointestinal (Abdomen): normal bowel sounds, soft, nontender, no hepatosplenomegaly Skin: no rashes, warm and dry Neurologic: moves all extremities and awake; not confused Psychiatric: A+Ox3, euthymic affect Genitourinary: + CVA tenderness (Left) Discharge Exam General: No acute distress, nondiaphoretic, well-developed, well-nourished. Skin: The skin was without rashes, erythema, edema, or bruising. Cardiac: Regular rate and rhythm without murmurs gallops or rubs. Pulm: Clear to auscultation bilaterally without wheezes, rales or rhonchi. No respiratory distress. 95% on room air. Abdominal: Soft, nontender, nondistended. Bowel sounds present. Neuro: A&O x3. No focal neurological deficits. Updated Medication List Medication Instructions Recorded Confirmed Type cholecalciferol (vitamin D3) 50 50 mcg PO DAILY 06/22/22 03/09/24 History mcg (2,000 unit) capsule ciprofloxacin HCl 500 mg tablet 500 mg PO Q12H #6 tabs 03/10/24 Rx (Cipro) tamsulosin 0.4 mg capsule 0.4 mg PO HS #10 caps 03/10/24 Rx tramadol 50 mg tablet 50 mg PO Q8H PRN pain #14 tabs 03/10/24 Rx Hospital Stay Data Procedures Performed Operation Date: 03/10/24 09:40 Actual Procedures p Cystoscopy, Left Ureteroscopy, Left Stent Placement, Laser Destruction of Stone - Logan Noonan MD Diagnostic Imagining Performed Laboratory Results WBC 4.08 K/ul (4.8-10.8) L 03/09/24 07:54 RBC 4.96 M/uL (4.70-6.10) 03/09/24 07:54 Hgb 12.1 g/dl (14.0-18.0) L 03/09/24 07:54 Hct 38.3 % (42.0-52.0) L 03/09/24 07:54 MCV 77.2 fL (80.0-100.0) L 03/09/24 07:54 MCH 24.4 pg (25.0-34.0) L 03/09/24 07:54 MCHC 31.6 g/dL (32.0-36.0) L 03/09/24 07:54 RDW Std Deviation 38.7 fL (36.4-46.3) 03/09/24 07:54 RDW Coeff of Aleisha 14.1 % (11.5-14.5) 03/09/24 07:54 Plt Count 211 K/uL (130-400) 03/09/24 07:54 MPV 9.9 fL (9.4-12.4) 03/09/24 07:54 Sodium 141 mmol/L (136-145) 03/09/24 07:54 Potassium 3.7 mmol/L (3.5-5.1) 03/09/24 07:54 Chloride 109 mmol/L (98-107) H 03/09/24 07:54 Carbon Dioxide 27 mmol/L (21-32) 03/09/24 07:54 Anion Gap 5 (3-11) 03/09/24 07:54 BUN 18 mg/dl (6-23) 03/09/24 07:54 Creatinine 0.93 mg/dl (0.6-1.4) 03/09/24 07:54 Est Cr Clr Drug Dosing 67.5 ml/min 03/09/24 07:54 Est GFR ( Amer) 104.5 ml/min 03/09/24 07:54 Est GFR (Non-Af Amer) 90.2 ml/min 03/09/24 07:54 BUN/Creatinine Ratio 19.4 (10-20) 03/09/24 07:54 Glucose 219 mg/dl (70-99(Fasting)) H 03/09/24 07:54 Calcium 8.6 mg/dl (8.6-10.3) 03/09/24 07:54 Total Bilirubin 0.5 mg/dl (0.2-1.0) 03/09/24 07:54 AST 19 U/L (13-39) 03/09/24 07:54 ALT 17 U/L (7-52) 03/09/24 07:54 Alkaline Phosphatase 66 U/L (34-104) 03/09/24 07:54 Total Protein 6.2 gm/dl (6.0-8.3) 03/09/24 07:54 Albumin 4.1 gm/dl (3.4-5.0) 03/09/24 07:54 Globulin 2.1 gm/dl (2.5-4.0) L 03/09/24 07:54 Albumin/Globulin Ratio 2.0 (0.9-2) 03/09/24 07:54 Urine Color [place] 03/09/24 11:20 Urine Appearance Turbid (Clear) A 03/09/24 11:20 Urine pH 6.0 (4.5-7.5) 03/09/24 11:20 Ur Specific [place] 1.021 (1.000-1.030) 03/09/24 11:20 Urine Protein 2+ (Negative) H 03/09/24 11:20 Urine Glucose (UA) Negative (Negative) 03/09/24 11:20 Urine Ketones Negative (Negative) 03/09/24 11:20 Urine Blood 3+ (Negative) H 03/09/24 11:20 Urine Nitrite Negative (Negative) 03/09/24 11:20 Urine Bilirubin Negative (Negative) 03/09/24 11:20 Urine Urobilinogen Negative (Negative) 03/09/24 11:20 Ur Leukocyte Esterase 1+ (Negative) H 03/09/24 11:20 Urine WBC (Auto) 0-5 /hpf (0-5) 03/09/24 11:20 Urine RBC (Auto) >20 /hpf (0-2) H 03/09/24 11:20 U Hyaline Cast (Auto) 0-2 /lpf (0-2) 03/09/24 11:20 U Epithel Cells (Auto) 0-2 /hpf (0-2) 03/09/24 11:20 Urine Bacteria (Auto) None Seen (None Seen) 03/09/24 11:20 Urine Mucus Present (None Prsent) A 03/09/24 11:20 Impressions KUB X-Ray 03/09/24 07:53 KUB HISTORY: Left flank pain COMPARISON: Renal ultrasound 12/05/2023. Abdomen and pelvis CT 08/01/2023. FINDINGS: The bowel gas pattern is unremarkable. There are no dilated loops of small bowel to suggest an obstruction. There is 9 mm stone at the expected location of the left ureteropelvic junction. There are few punctate left renal calculi. No right renal calculi. A 2.3 cm sclerotic focus within the left side of the sacrum is consistent with a bone island. No pneumoperitoneum or pneumatosis. IMPRESSION: 1. A 9 mm stone at the expected location of the left ureteropelvic junction. 2. Left-sided nephrolithiasis. ACT 112: Negative or not required by law. Electronically signed by: Anuel Stewart M.D. 03/09/2024 9:28 AM Abdomen/Pelvis CT 03/09/24 08:[address] WITHOUT CONTRAST CT DOSE: 441.01 mGy.cm HISTORY: Acute left flank pain with hematuria kidney stone TECHNIQUE: Multiaxial CT images of the abdomen and pelvis were performed without contrast. A dose lowering technique was utilized adhering to the principles of ALARA. COMPARISON STUDY: Renal ultrasound 12/05/2023, CT 08/01/2023 FINDINGS: No acute lower thoracic abnormality. No free air. The unenhanced spleen, pancreas, gallbladder, adrenal glands and liver appear unremarkable. Unremarkable right kidney. 4 mm nonobstructing calculus of the superior pole left kidney. Moderate left-sided hydroureteronephrosis secondary to an o bstructing 9 x 7 x 11 mm calculus of the proximal left ureter just distal to the UPJ. Reactive perinephric and perirenal inflammatory stranding. Prostatomegaly. Decompressed urinary bladder with wall thickening. Mild atherosclerosis of the aorta. No lymphadenopathy identified. Small hiatal hernia with distal esophageal wall thickening. No bowel obstruction or bowel wall thickening identified. The appendix is not well visualized. Unchanged left sacral sclerotic focus. No acute fracture. IMPRESSION: 1. Moderate left-sided hydroureteronephrosis secondary to an obstructing 11 mm calculus of the proximal left ureter just distal to the UPJ. 2. Left nephrolithiasis. ACT 112: Negative or not required by law. The above report was generated using voice recognition software. It may contain grammatical, syntax or spelling errors. Electronically signed by: Carlo Plaza M.D. 03/09/2024 9:21 AM Abdomen Fluoroscopy 03/10/24 00:00 FL KUB CLINICAL HISTORY: LEFT STENTleft ureteral stent placement COMPARISON STUDY: CT 03/09/2024 FLUOROSCOPY TIME: 20.2 seconds FLUOROSCOPY IMAGES: 1 EXPOSURE DOSE: 3.0 mGy FINDINGS: Proximal portion of a left ureteral stent is in satisfactory positioning. The distal portion of the stent was not imaged. Previously noted proximal left ureteral calculus is not seen. IMPRESSION: Fluoroscopic assistance as above. ACT 112: Negative or not required by law. Electronically signed by: Carlo Plaza M.D. 03/10/2024 3:59 PM Pending Results Patient Have Any Pending Studies at Discharge: Yes Discharge Instructions Given to Patient (Per Discharging Provider) Mr. Rankin, You were admitted to the hospital with left-sided ureteral and kidney stones. This is what caused your flank pain. You were seen by urology who performed surgery on 03/10/2024 to remove the stones. Your prescriptions have been sent to the [facility] pharmacy in [facility] Upon discharge from the hospital: * Take ciprofloxacin (oral antibiotic) 500 mg twice daily x 3 days. * Take tamsulosin (Flomax) 0.4 mg at bedtime. This is an alpha-amira relaxes the muscles in your bladder, making it easier to pee. Take this until your urology follow-up appointment, where they will then determine how long to continue this for. * Alternate between Tylenol and ibuprofen as your first-line pain control. These are [id number] (OTC), so no prescription is required. Use this as your first-line pain control. * Take tramadol 50 mg every 8 hours as needed for breakthrough pain. Use this as your second line pain control. * Follow-up with urology. Your appointment is scheduled for 03/12/2024 at 4:00 PM. Please return to the hospital if you experience any of the following: Pain that is not controlled by the medicine given, repeated vomiting or unable to keep down fluids, fever of 100.4 F or higher, solid red or brown urine, urine with a lot of blood clots, foul-smelling or cloudy urine, unable to urinate for 8 hours with increasing bladder pressure, weakness, dizziness, passing out, chest pain, or difficulty breathing. It was a pleasure taking care of you while you were in the hospital, Clarita White PA-C Total Time Total Time Spent Total Time Spent (In Minutes): Greater than 30 minutes spent completing this discharge process including direct patient care, medication reconciliation, documentation, review of labs and images, and coordination of care. Coding Level of Care Code 38646 INP/OBS DISCH >30 MIN Diagnoses Ureterolithiasis N20.1
== END 2024-03-10 20:00 | disposition home or self-care (01) | DRG 661 ==
LOC: ED 07:42 → SUATTDRO 11:55 → EDINP 11:55 → 3N 14:47